=== PATIENT | female | born 1985 | race African-American/Black ===

== ENCOUNTER 2017-03-22 19:17 | Inpatient (IN) ==
[2017-03-22] MEDS ORDERED: ONDANSETRON 4 MG/2 ML VIAL IV PRN (19:22)
[2017-03-22] MEDS ORDERED: BUTORPHANOL 2 MG/ML VIAL IV PRN (19:22)
[2017-03-22] MEDS ORDERED: ACETAMINOPHEN 325 MG TABLET PO PRN ×2 (19:22→20:55)
[2017-03-22] MEDS ORDERED: MEPERIDINE 50 MG/1 ML VIAL IV PRN (19:22)
[2017-03-22] MEDS ORDERED: LACTATED RINGERS 1,000 ML IV SCH (19:30)
[2017-03-22] MEDS ORDERED: OXYTOCIN/LR 20 UNIT/1,000 ML BAG IV SCH (19:30)
[2017-03-22 19:32] LABS: Basophils % 0.1 % (0.0-0.8); Eosinophils # 0.1 10*3/uL (0.0-0.87); Eosinophils % 0.9 % (0.00-10.9); Hematocrit 35.1 VOL% (35.7-47.0); Hemoglobin 10.9 GM/DL (12.0-16.0); Immature Granulocytes % 0.3 %; Immature Granulocytes Absolute 0.03 #; Lymphocytes # 1.3 10*3/uL (1.4-4.0); Lymphocytes % 14.6 % (21.3-54.2); Mean Corpuscular HGB Conc 31.1 GM/DL (32-36); Mean Corpuscular Hemoglobin 24 PG (27-34); Mean Corpuscular Volume 78.7 FL (87-102); Mean Platelet Volume 12.2 FL (9.6-12.0); Monocytes # 0.7 10*3/uL (0.11-0.8); Monocytes % 8.6 % (1.7-12.7); Neutrophils # 6.5 10*3/uL (1.4-7.4); Neutrophils % 75.5 % (38.7-73.9); Platelet Count 188 T/CUMM (130-400); Red Blood Count 4.46 MC/CUMM (3.8-5.5); Red Cell Distribution Width 14.6 % (9.3-17.3); White Blood Count 8.6 T/CUMM (4-12)
[2017-03-22] MEDS ORDERED: LIDOCAINE 1% 50 ML VIAL ONE (19:34)
[2017-03-22] MEDS ORDERED: miSOPROStol 200 MCG TABLET ONE (19:35)
--- NOTE | 2017-03-22 19:51 | OB/GYN History & Physical ---
History of Present Illness Chief complaint: "I'm hurting and feeling contractions. I've been hurting since 9:34 am" History of present illness: Ms. Conrad is a 31 year old female that presented with c/o contractions since 09:34 this morning. She has an EDC of 03/26/17 per LMP. She is 39.3 wks gestation today. Her records are available, reviewed, current, and up to date. Her has been uneventful, no abnormalities. She had a total of 3 ultrasounds and 11 visits. Denies SROM, vaginal bleeding, or leakage of fluid. States notices good movement. 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, lives with and children Genetic Hx: noncontributory Allergies: NKDA Labs: Blood type A positive; antibody screen negative; Rubella Immune; HBsAg negative; HIV negative; VDRL negative; GC negative; Chlamydia negative; Vitamin D 10.9; Cystic Fibrosis negative; MSAFP negative; H/H 01/03/17 9.8/30.6; 1 hr gtt 147; 3 hr gtt FBS 100, 1 hr gtt 158, 2 hr gtt 135, 3 hr gtt 109; GBS negative Allergies Allergy/AdvReac Type Severity Reaction Status Date / Time No Known Allergies Allergy Verified 03/22/17 19:22 12 point system: reviewed and no additional remarkable complaints except as stated Medical,Surgical,& Family Hx - Medical History Medical History: noncontributory - Surgical History Surgical History: noncontributory - Family History Family History: Reports;: Family Diabetes (father, maternal grandmother), Family Hypertension (mother) - Social History Smoking Status: Never smoker Have you smoked in the last 12 months: No Frequency of Alcohol Use: None Type of Drug Use: None Marital Status: Lives With:: Significant Other (and children) Functional capacity: independent ambulation 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 General appearance: no acute distress - Antepartum / Post Post Exam Cervix - Dilatation: 9 cm Effacement: 95% Station: 0 Rupture: ruptured @ 1925 Presentation: vertex Heart Rate: 130s with spontaneous variability with occasional variable decels noted [place]: 2-3 min/ 40-60 sec/ mod Breast: bilateral: normal Abdomen obstetrics: Present: bowel sounds normal Vagina: Present: normal moisture Uterus exam: Present: enlarged (gravid, soft, nontender between contractions, EFW 8-8.5 pounds) Anus/Rectum: Present: normal perianal skin - Head Head exam: Present: normal inspection - Eye Eye exam: Present: EOMI - ENT ENT exam: Present: normal exam, normal external ear exam - Neck Neck exam: Present: normal inspection, lymphadenopathy - Respiratory Respiratory exam: Present: clear to auscultation bilaterally - Cardiovascular Cardiovascular exam: Present: regular rate and rhythm - GI/Abdominal GI/Abdominal exam: Present: normal bowel sounds - Extremities Exam Extremities exam: Present: normal inspection, normal capillary refill, full ROM - Back Exam Back exam: Present: normal inspection - Neurological Exam Neurological exam: Present: alert, oriented X3, normal gait - Psychiatric Psychiatric exam: Present: normal affect, normal mood - Skin Skin exam: Present: normal color, warm, dry Assessment and Plan (1) Spontaneous onset of labor Status: Acute Current Visit: Yes (2) Anemia Status: Acute Current Visit: Yes Qualifiers: Anemia type: iron deficiency Results - Labs CBC & BMP: 03/22/17 19:27
[2017-03-22 20:01] LABS: Alanine Aminotransferase 12 U/L (13-56); Albumin 3.1 G/DL (3.4-5.0); Alkaline Phosphatase 168 U/L (45-117); Aspartate Amino Transferase 12 U/L (0-37); Bilirubin,Total < 0.39 MG/DL (0.2-1.0); Blood Urea Nitrogen 5 MG/DL (7-18); Glucose 82 MG/DL (74-106); Osmolality,Calculated 268.8 MOS/KG (273-304); Potassium 4.1 MMOL/L (3.5-5.1); Sodium 137 MMOL/L (136-145); Total Protein 7.4 G/DL (6.4-8.3)
--- NOTE | 2017-03-22 20:54 | Operative Note ---
Date of procedure: 03/22/17 Pre-op diagnosis: IUP @ 39.3 wks, Spontaneous Labor Post-op diagnosis: other () Procedure: Patient received dorsal lithotomy position. Patient was draped and prepped. At 2037, head delivered in SHAUN position. Anterior then posterior shoulders were delivered easily without difficulty. delivered in usual fashion and secured. Mouth and nose bulb suctioned. Cord doubly clamped and cut father of the baby. placed mother's abdomen, dried, and attended per the nursery RN. At 2040, spontaneous delivery of placenta via Sindy position, with 3 vessel cord noted, normal cord insertion, with minimal calcifications. Hemostasis maintained with fundal massage and Pitocin 20 units in 1000 cc lactated Ringer. Uterine suite performed with small clots noted, small trailer membrane is tissue present, uterus firm with fundal massage. Perineum inspected with labial abrasions noted, stable, no repair needed. Male with Apgars 8 and 9 with weight pending. Mother and baby are stable. Mother desires to breast-feed. Anesthesia: none Surgeon / Physician: Donna Cline Estimated blood loss: minimal (100cc) Specimens: other (Placenta to pathology secondary to trailing membranes noted) Condition: stable Disposition: floor Results - Labs CBC & BMP: 03/22/17 19:27 03/22/17 19:27
[2017-03-22] MEDS ORDERED: HYDROCORTISONE 2.5% RECTAL CREAM 30 GM TUBE TOP PRN (20:55)
[2017-03-22] MEDS ORDERED: MEASLES/MUMPS/RUBELLA VACCINE 0.5 ML VIAL SUBCUT ONE (20:55)
[2017-03-22] MEDS ORDERED: oxyCODONE/ACETAMINOPHEN 5-325 MG TABLET PO PRN ×2 (20:55)
[2017-03-22] MEDS ORDERED: IBUPROFEN 800 MG TABLET PO PRN (20:55)
[2017-03-22] MEDS ORDERED: OXYTOCIN/LR 20 UNIT/1,000 ML BAG IV ONE (20:55)
[2017-03-22] MEDS ORDERED: LANOLIN 50% CREAM 0.3 OZ TUBE TOP PRN (20:55)
[2017-03-22] MEDS ORDERED: RHO(D) IMMUNE GLOBULIN 300 MCG SYRINGE IM ONE (20:55)
[2017-03-22] MEDS ORDERED: DIPH/TET/ACEL PERT BOOSTER VACCINE 0.5 ML VIAL IM ONE (20:55)
[2017-03-22] MEDS ORDERED: BENZOCAINE 20%/MENTHOL 0.5% SPRAY 56 GM CAN TOP PRN (20:55)
[2017-03-22] MEDS ORDERED: WITCH HAZEL PADS 100/JAR TOP PRN (20:55)
[2017-03-22] MEDS ORDERED: BISACODYL 10 MG SUPP RECTAL PRN (20:55)
[2017-03-22] MEDS: DOCUSATE SODIUM 100 MG CAPSULE PO SCH (22:07)
[2017-03-22] MEDS: FERROUS SULFATE 325 MG TABLET PO SCH (22:07)
[2017-03-23 07:34] LABS: Basophils % 0.1 % (0.0-0.8); Eosinophils # 0.1 10*3/uL (0.0-0.87); Eosinophils % 0.5 % (0.00-10.9); Hematocrit 30.2 VOL% (35.7-47.0); Hemoglobin 9.5 GM/DL (12.0-16.0); Immature Granulocytes % 0.4 %; Immature Granulocytes Absolute 0.04 #; Lymphocytes # 1.2 10*3/uL (1.4-4.0); Lymphocytes % 10.7 % (21.3-54.2); Mean Corpuscular HGB Conc 31.5 GM/DL (32-36); Mean Corpuscular Hemoglobin 25 PG (27-34); Mean Corpuscular Volume 78.4 FL (87-102); Mean Platelet Volume 12.3 FL (9.6-12.0); Monocytes % 8.8 % (1.7-12.7); Neutrophils % 79.5 % (38.7-73.9); Platelet Count 184 T/CUMM (130-400); Red Blood Count 3.85 MC/CUMM (3.8-5.5); Red Cell Distribution Width 14.6 % (9.3-17.3); White Blood Count 11.4 T/CUMM (4-12)
[2017-03-23 08:05] LABS: Band Neutrophils 1 % (0-10); Hypochromasia 1+; Lymphocytes 8 % (20-55); Microcytosis 1+; Ovalocytes Slight; Segmented Neutrophils 84 % (50-85); Total Cells Counted 100
[2017-03-23 08:06] LABS: Platelet Estimate Adequate
--- NOTE | 2017-03-23 12:09 | Discharge Summary ---
Hospital Course - Hospital Course Hospital Course: Patient is a 5 now para 4024 that presented yesterday with spontaneous labor. Labor progressed under IV analgesics of Demerol for patient to deliver an 8 lbs. 10 oz. male with Apgars 8 and 9 over an intact perineum. She is breast-feeding without difficulty. She desires to use control pills for control method of choice. She will be discharged home tomorrow if stable. She denies any problems presently. Diagnosis - Discharge Diagnosis (1) Spontaneous onset of labor Status: Acute (2) Anemia Status: Acute (3) (normal spontaneous vaginal delivery) Status: Resolved (4) Anemia Status: Acute Specialty Discharge - Follow Up or Referrals Discharge Plan - Discharge Data Disposition: Disch To Home/Self Care Condition at Discharge: Stable Discharge Diet: advance to your usual diet Activity: resume usual activities as tolerated Hygiene: may shower Weight Bearing at Discharge: full weight bearing Driving: not for (2 week) Contact your physician if you experience:: fever over 101, Difficulty voiding, Redness or swelling, Nausea/Vomiting, Shortness of breath, Bleeding, pain uncontrolled by pain medications - Discharge Medications New Ibuprofen Tab [Motrin Tab] 800 mg PO Q8H PRN #90 tablet PRN Reason: Pain Moderate (4-7) Ferrous Sulfate Tab [Feosol Original Tab] 325 mg PO TID #90 tablet No Action Ferrous Sulfate [Iron] 1 tablet PO DAILY No122/Iron/Folic Acid [ Multi Tablet] 1 tablet PO DAILY - Follow Up or Referral Follow Up: Donna Cline CFNP [Advanced Practice Nurse] - 2 Weeks - Forms/Instructions Instructions: Perineal Care (DC), Vaginal Delivery (DC), Bleeding (DC) Exam - Constitutional Vitals: Period Temp Pulse Resp BP Sys/Mccullough Pulse Ox Last 24 Hr 97.5 F-98.4 F 61-73 18-20 93-114/48-57 98-99 General appearance: no acute distress - Head Head exam: Present: normal inspection - Eye Eye exam: Present: EOMI Pupils: Present: normal accommodation - ENT ENT exam: Present: normal exam, normal external ear exam - Neck Neck exam: Present: normal inspection - Respiratory Respiratory exam: Present: clear to auscultation bilaterally - Cardiovascular Cardiovascular exam: Present: regular rate and rhythm - GI/Abdominal GI/Abdominal exam: Present: normal bowel sounds (Uterus firm, midline, 2 fingerbreadths below the umbilicus. Perineum intact, no edema, minimal bleeding noted on perineal pad with scant rubra present) - Extremities Exam Extremities exam: Present: normal inspection, normal capillary refill, full ROM - Back Exam Back exam: Present: normal inspection - Neurological Exam Neurological exam: Present: alert, oriented X3, normal gait - Psychiatric Psychiatric exam: Present: normal affect, normal mood - Skin Skin exam: Present: normal color, warm, dry Discharge Results Procedures and tests throughout hospitalization: Laboratory Tests 03/22/17 03/22/17 03/22/17 19:27 19:27 19:27 WBC 8.6 RBC 4.46 Hgb 10.9 L Hct 35.1 L MCV 78.7 L MCH 24 L MCHC 31.1 L RDW 14.6 Plt Count 188 MPV 12.2 H Neut % (Auto) 75.5 H Lymph % (Auto) 14.6 L [place] % (Auto) 8.6 Eos % (Auto) 0.9 Baso % (Auto) 0.1 Neut # (Auto) 6.5 Lymph # (Auto) 1.3 L [place] # (Auto) 0.7 Eos # (Auto) 0.1 Baso # (Auto) 0.0 Total Counted Immature Gran % 0.3 Nucleated RBC % 0.0 Immature Gran # 0.03 Segmented Neutrophils Band Neutrophils Lymphocytes Monocytes Nucleated RBCs # 0.00 Platelet Estimate Immature Plt Fraction 0.0 Hypochromasia Microcytosis Ovalocytes Sodium 137 Potassium 4.1 Chloride 103 Carbon Dioxide 25 Anion Gap 13.1 BUN 5 L Creatinine 0.50 L GFR Calculation 164 BUN/Creatinine Ratio 10.00 Glucose 82 Calculated Osmolality 268.8 L Calcium 9.0 Total Bilirubin < 0.39 AST 12 ALT 12 L Alkaline Phosphatase 168 H Total Protein 7.4 Albumin 3.1 L Globulin 4.3 H Albumin/Globulin Ratio 0.7 L Treponema pallidum IgG Blood Type A POSITIVE Antibody Screen Negative 03/22/17 03/23/17 19:27 07:22 WBC 11.4 D RBC 3.85 Hgb 9.5 L Hct 30.2 L MCV 78.4 L MCH 25 L MCHC 31.5 L RDW 14.6 Plt Count 184 MPV 12.3 H Neut % (Auto) 79.5 H Lymph % (Auto) 10.7 L [place] % (Auto) 8.8 Eos % (Auto) 0.5 Baso % (Auto) 0.1 Neut # (Auto) 9.0 H Lymph # (Auto) 1.2 L [place] # (Auto) 1.0 H Eos # (Auto) 0.1 Baso # (Auto) 0.0 Total Counted 100 Immature Gran % 0.4 Nucleated RBC % 0.0 Immature Gran # 0.04 Segmented Neutrophils 84 Band Neutrophils 1 Lymphocytes 8 L Monocytes 7 Nucleated RBCs # 0.00 Platelet Estimate Adequate Immature Plt Fraction 0.0 Hypochromasia 1+ Microcytosis 1+ Ovalocytes Slight Sodium Potassium Chloride Carbon Dioxide Anion Gap BUN Creatinine GFR Calculation BUN/Creatinine Ratio Glucose Calculated Osmolality Calcium Total Bilirubin AST ALT Alkaline Phosphatase Total Protein Albumin Globulin Albumin/Globulin Ratio Treponema pallidum IgG Nonreactive Blood Type Antibody Screen Labs on day of discharge: Labs from last 24 hours 03/23/17 03/22/17 03/22/17 07:22 19:27 19:27 WBC 11.4 D RBC 3.85 Hgb 9.5 L Hct 30.2 L MCV 78.4 L MCH 25 L MCHC 31.5 L RDW 14.6 Plt Count 184 MPV 12.3 H Neut % (Auto) 79.5 H Lymph % (Auto) 10.7 L [place] % (Auto) 8.8 Eos % (Auto) 0.5 Baso % (Auto) 0.1 Neut # (Auto) 9.0 H Lymph # (Auto) 1.2 L [place] # (Auto) 1.0 H Eos # (Auto) 0.1 Baso # (Auto) 0.0 Total Counted 100 Immature Gran % 0.4 Nucleated RBC % 0.0 Immature Gran # 0.04 Segmented Neutrophils 84 Band Neutrophils 1 Lymphocytes 8 L Monocytes 7 Nucleated RBCs # 0.00 Platelet Estimate Adequate Immature Plt Fraction 0.0 Hypochromasia 1+ Microcytosis 1+ Ovalocytes Slight Sodium 137 Potassium 4.1 Chloride 103 Carbon Dioxide 25 Anion Gap 13.1 BUN 5 L Creatinine 0.50 L GFR Calculation 164 BUN/Creatinine Ratio 10.00 Glucose 82 Calculated Osmolality 268.8 L Calcium 9.0 Total Bilirubin < 0.39 AST 12 ALT 12 L Alkaline Phosphatase 168 H Total Protein 7.4 Albumin 3.1 L Globulin 4.3 H Albumin/Globulin Ratio 0.7 L Treponema pallidum IgG Nonreactive Blood Type Antibody Screen 03/22/17 03/22/17 19:27 19:27 WBC 8.6 RBC 4.46 Hgb 10.9 L Hct 35.1 L MCV 78.7 L MCH 24 L MCHC 31.1 L RDW 14.6 Plt Count 188 MPV 12.2 H Neut % (Auto) 75.5 H Lymph % (Auto) 14.6 L [place] % (Auto) 8.6 Eos % (Auto) 0.9 Baso % (Auto) 0.1 Neut # (Auto) 6.5 Lymph # (Auto) 1.3 L [place] # (Auto) 0.7 Eos # (Auto) 0.1 Baso # (Auto) 0.0 Total Counted Immature Gran % 0.3 Nucleated RBC % 0.0 Immature Gran # 0.03 Segmented Neutrophils Band Neutrophils Lymphocytes Monocytes Nucleated RBCs # 0.00 Platelet Estimate Immature Plt Fraction 0.0 Hypochromasia Microcytosis Ovalocytes Sodium Potassium Chloride Carbon Dioxide Anion Gap BUN Creatinine GFR Calculation BUN/Creatinine Ratio Glucose Calculated Osmolality Calcium Total Bilirubin AST ALT Alkaline Phosphatase Total Protein Albumin Globulin Albumin/Globulin Ratio Treponema pallidum IgG Blood Type A POSITIVE Antibody Screen Negative DS: Provider Date of admission: 03/22/17 20:08 Attending physician on admission: Nadia Sparks- Consults: 03/22/17 19:22 Consult to Anesthesiology [CONS] Routine Consulting Provider: Reason for Anesthesiology: Epidural Consult Comment: Epidural for pain managment 03/22/17 20:55 Consult to Automobile Travel Club Counselor [CONS] Routine Consult Automobile Travel Club Counselor: Breast Feeding Discharging clinician: SONIA Suarez
[2017-03-23] MEDS: DOCUSATE SODIUM 100 MG CAPSULE PO SCH (20:55)
[2017-03-23] MEDS: FERROUS SULFATE 325 MG TABLET PO SCH (20:55)
[2017-03-24 07:30] VITALS: BP 90/50
[2017-03-24] MEDS: DOCUSATE SODIUM 100 MG CAPSULE PO SCH (09:27)
[2017-03-24] MEDS: FERROUS SULFATE 325 MG TABLET PO SCH (09:27)
--- NOTE | 2017-03-27 13:27 | Pathology Report from [facility] ---
[facility] [place] : [id number] PATIENT NAME : Babs Conrad ORDERING DR : Nadia Dean MD CLINICAL HX: IUP # 39.3 weeks gestation - Active labor - Trailing membranes noted POST-OP DX: Same SPECIMEN INFO: Placenta GROSS DESCRIPTION: Received fresh labeled with the patients name and consists of a 497 gram placenta which measures 19.0 x 17.0 x 2.5 cm. membranes are pink-thompson and translucent. The umbilical cord measures 39.5 cm, contains three vessels and is eccentrically inserted. The surface is blue-herr and intact. The maternal surface is red-herr and intact. No abnormalities appreciated upon sectioning. Sections submitted: A membranes and cord, B and maternal surfaces. DIAGNOSIS FOR BABS CONRAD: PLACENTA, MEMBRANES, UMBILICAL CORD: Focal placental infarction with dystrophic calcification, mild intravillous blood. Tri-vessel umbilical cord, eccentrically inserted. Membranes with focal acute and chronic inflammation. COLLECTED DATE: 03/23/2017 [facility] REPORT DATE: 03/24/2017 ELECTRONICALLY SIGNED BY: Estrella Richard M.D. 03/24/2017 - 9:35:52 [facility]
== END 2017-03-24 14:00 | disposition home or self-care (01) | DRG 775 ==
LOC: N.LDOUT 19:17 → N.LD 19:22 → N.OB 03-23 01:02
PROVIDERS: ADMIT Obstetrics & Gynecology; ATTEND Obstetrics & Gynecology